=== PATIENT | male | born 1980 | race Caucasian/White ===

== ENCOUNTER 2017-08-02 09:02 | Emergency (ER) | payer OTHER | END 2017-08-02 11:47 | disposition home or self-care (01) | LOC: FER 09:02 | DX: S46.002A Unspecified injury of muscle(s) and tendon(s) of the rotator cuff of left shoulder, initial encounter (principal); F17.200 Nicotine dependence, unspecified, uncomplicated; W17.89XA Other fall from one level to another, initial encounter; Y93.51 Activity, roller skating (inline) and skateboarding | CPT/HCPCS: 71101; 73000; 99283 ==